=== PATIENT | male | born 1995 | race Caucasian/White ===

== ENCOUNTER 2016-07-09 21:27 | Emergency (ER) | payer BC ==
[~2016-07-09] VITALS: Ht 188 cm; Wt 100.2 kg
[2016-07-09 21:32] VITALS: TEMP 37.1; Ht 188 cm; Wt 100.2 kg
[2016-07-09] MEDS ORDERED: CEPHALEXIN MONOHYDRATE 250 MG CAP PO ONE (23:15)
[2016-07-09] MEDS ORDERED: CEPH500C PO (23:39)
--- NOTE | 2016-07-09 23:43 | EMERGENCY ROOM VISIT NOTE ---
History Report prepared by Merlene: Romel Schmitt Under the Supervision of: Dr. Dale Ren D.O. First contact with patient: 22:21 Chief Complaint: WOUND INFECTION Stated Complaint: DRAINAGE FROM INCISION SITE Nursing Triage Summary: inscision is healed there is some clear drainage coming form the top of the incision in a large amount, no redness or swelling noted History of Present Illness The patient is a 20 year old male who presents to the Emergency Room with complaints of sudden oozing from a wound on the right knee beginning a few hours prior to arrival. He states he had right ACL reconstruction surgery on May 22, and noticed excessive fluid drainage out of an incision site. The patient states he had physical therapy yesterday, and denies his knee being more swollen than usual. Source of History: patient Onset: few hours [employer] Position: knee (right) Quality: other (oozing wound) Timing: other (sudden) Review of Systems See HPI for pertinent positives & negatives. A total of 10 systems reviewed and were otherwise negative. Past Medical & Surgical Medical Problems: (1) Alcohol overdose (2) Alcoholic intoxication Surgical Problems: (1) H/O reconstruction of anterior cruciate ligament tear Family History FH polycystic kidney FH: pulmonary embolism Social History Smoking Status: Never Smoker Alcohol Use: occasionally Marital Status: single Occupation Status: [employer] student Current/Historical Medications Scheduled Cephalexin Monohydrate (Keflex), 500 MG PO QID Allergies Coded Allergies: No Known Allergies (Unverified , 07/09/16) Physical Exam Vital Signs Date Time Temp Pulse Resp B/P Pulse Ox O2 Delivery O2 Flow Rate FiO2 07/09/16 21:32 37.1 92 18 145/68 98 Room Air Physical Exam CONSTITUTIONAL/VITAL SIGNS: Reviewed / noted above. GENERAL: Non-toxic in appearance. INTEGUMENTARY: Warm, dry, and [place]. HEAD: Normocephalic. EYES: without scleral icterus or trauma. ENT/OROPHARYNX: clear and moist. LYMPHADENOPATHY/NECK: Is supple without lymphadenopathy or meningismus. RESPIRATORY: Lungs clear and equal. CARDIOVASCULAR: Regular rate and rhythm. GI/ABDOMEN: Soft and nontender. No organomegaly or pulsatile mass. No rebound or guarding. Normal bowel sounds. EXTREMITIES: There is a 3 cm linear wound to the infrapatellar region that appears to be draining serous fluid in a small amount, although was draining more earlier based on history. No additional abnormal finding with regard to the knee. Warm and well perfused. BACK: No CVA tenderness. NEUROLOGICAL: Intact without focal deficits. PSYCHIATRIC: normal affect. MUSCULOSKELETAL: Normally developed with good muscle tone. Medical Decision & Procedures Medications Administered Medications (Trade) Dose Ordered Sig/Andrew Route Start Time Stop Time Status Last Admin Dose Admin Cephalexin Monohydrate (Keflex Cap) 500 mg NOW ONCE PO 07/09/16 23:15 07/09/16 23:16 DC 07/09/16 23:14 500 MG ED Course 2300: Previous medical records were reviewed. The patient was evaluated in room B10. A complete history and physical examination was performed. 2315: Ordered Keflex Cap 500 mg PO. 2320: On reevaluation, the patient is doing well. I discussed the results and findings with the patient. He verbalized agreement of the treatment plan. The patient was discharged home. Medical Decision Etiologies such as cellulitis, abscess, MRSA infection, DVT, necrotizing fasciitis, dermatitis, drug eruption, as well as others were entertained.. This is a 20-year-old male who presents to the ED with a chief complaint of some serous drainage from a surgical wound site. The patient had anterior cruciate ligament repair performed on recently. He had a moderate amount of serous fluid drained from a wound that is not completely healed from the inferior aspect of the left knee. There is an open wound that is about 3 cm in length and a half centimeter in width. Does not appear to be acutely infected. There is some serous clear drainage from the wound when it is squeezed. There does not appear to be a knee effusion. There is no pain in the knee. The patient was started on Keflex to prevent infection while the wound heals. He was told to follow-up with his orthopedist and or doctors for further evaluation. Impression Primary Impression: Delayed surgical wound healing Additional Impression: Post surgical seroma drainage Scribe Attestation The scribe's documentation has been prepared under my direction and personally reviewed by me in its entirety. I confirm that the note above accurately reflects all work, treatment, procedures, and medical decision making performed by me. Departure Information Prescriptions Cephalexin Monohydrate (Keflex) 500 Mg Cap 500 MG PO QID, #28 CAP Prov: Dale Ren D.O. 07/09/16 Referrals [facility] (PCP) Forms HOME CARE DOCUMENTATION FORM, IMPORTANT VISIT INFORMATION, WORK / SCHOOL INSTRUCTIONS Patient Instructions My [facility] Problem Qualifiers
[2016-07-09] MEDS ORDERED: CEPHALEXIN 500MG HOME PACK 1 EA BTL PO ONE (23:45)
[2016-07-09 23:50] VITALS: BP 154/83; PULSE 83; O2SAT 97
== END 2016-07-09 23:51 | disposition home or self-care (01) ==
LOC: C.EDB 21:29
DX: L76.34 Postprocedural seroma of skin and subcutaneous tissue following other procedure (principal); Z82.71 Family history of polycystic kidney; Z82.49 Family history of ischemic heart disease and other diseases of the circulatory system

== ENCOUNTER → 2016-09-16 | Outpatient (CLI) | payer BC ==
[~2016-09-16] MED LIST: CEPH500C PO
[2016-09-16 11:52] LABS: BASO % 0.7 %; BASO ABS # 0.04 K/uL (0-0.2); COMPLETE YES; EOS % 2.3 %; IG% 0.2 %; LYMPH % 39.7 %; LYMPH ABS # 2.25 K/uL (1.2-3.4); MEAN CELL VOLUME 84.2 fL (80-100); MEAN CORPUSCULAR HEMOGLOBIN 28.1 pg (25-34); MEAN CORPUSCULAR HGB CONC 33.3 g/dl (32-36); MEAN PLATELET VOLUME 9.3 fL (7.4-10.4); MONO % 6.3 %; NEUT % 50.8 %; PLATELET COUNT 276 K/uL (130-400); RED BLOOD COUNT 4.63 M/uL (4.7-6.1); WHITE BLOOD COUNT 5.67 K/uL (4.8-10.8)
[2016-09-16 12:10] LABS: BLOOD UREA NITROGEN 10 mg/dl (7-18); BUN/CREATININE RATIO 11.4 (10-20); C-REACTIVE PROTEIN < 0.29 mg/dl (0-0.29); CALCIUM 9.4 mg/dl (8.5-10.1); CARBON DIOXIDE 28 mmol/L (21-32); CHLORIDE 104 mmol/L (98-107); CREATININE 0.84 mg/dl (0.60-1.40); GLUCOSE 80 mg/dl (70-99); POTASSIUM 4.2 mmol/L (3.5-5.1); SODIUM 140 mmol/L (136-145)
== END | disposition home or self-care (01) ==
LOC: C.LABSPEC 11:30
PROVIDERS: ATTEND Internal Medicine
DX: M00.9 Pyogenic arthritis, unspecified (principal)

== ENCOUNTER → 2016-09-23 | Outpatient (CLI) | payer BC ==
[2016-09-23 11:33] LABS: BASO % 0.8 %; BASO ABS # 0.04 K/uL (0-0.2); COMPLETE YES; EOS % 4.2 %; IG% 0.2 %; LYMPH % 35.9 %; LYMPH ABS # 1.89 K/uL (1.2-3.4); MEAN CELL VOLUME 85.7 fL (80-100); MEAN CORPUSCULAR HEMOGLOBIN 28.1 pg (25-34); MEAN CORPUSCULAR HGB CONC 32.8 g/dl (32-36); MONO % 8.7 %; NEUT % 50.2 %; PLATELET COUNT 202 K/uL (130-400); RED BLOOD COUNT 4.67 M/uL (4.7-6.1); WHITE BLOOD COUNT 5.27 K/uL (4.8-10.8)
[2016-09-23 11:47] LABS: BLOOD UREA NITROGEN 7 mg/dl (7-18); BUN/CREATININE RATIO 15.3 (10-20); CALCIUM 6.8 mg/dl (8.5-10.1); CARBON DIOXIDE 23 mmol/L (21-32); CHLORIDE 114 mmol/L (98-107); CREATININE 0.48 mg/dl (0.60-1.40); GLUCOSE 75 mg/dl (70-99); POTASSIUM 3.4 mmol/L (3.5-5.1); SODIUM 144 mmol/L (136-145)
[2016-09-23 11:50] LABS: C-REACTIVE PROTEIN < 0.29 mg/dl (0-0.29)
== END | disposition home or self-care (01) ==
LOC: C.LABSPEC 11:23
PROVIDERS: ATTEND Internal Medicine
DX: M00.9 Pyogenic arthritis, unspecified (principal)

== ENCOUNTER → 2016-10-02 | Outpatient (CLI) | payer BC ==
[2016-10-02 11:46] LABS: BLOOD UREA NITROGEN 14 mg/dl (7-18); CALCIUM 9.1 mg/dl (8.5-10.1); CARBON DIOXIDE 27 mmol/L (21-32); CHLORIDE 108 mmol/L (98-107); CREATININE 0.74 mg/dl (0.60-1.40); GLUCOSE 82 mg/dl (70-99); SODIUM 139 mmol/L (136-145)
[2016-10-02 11:49] LABS: C-REACTIVE PROTEIN < 0.29 mg/dl (0-0.29)
[2016-10-02 11:54] LABS: BASO % 0.8 %; BASO ABS # 0.04 K/uL (0-0.2); COMPLETE YES; EOS % 5.9 %; HEMATOCRIT 43.4 % (42-52); LYMPH % 34.4 %; MEAN CELL VOLUME 85.6 fL (80-100); MEAN CORPUSCULAR HEMOGLOBIN 28.6 pg (25-34); MEAN CORPUSCULAR HGB CONC 33.4 g/dl (32-36); MEAN PLATELET VOLUME 9.4 fL (7.4-10.4); MONO % 9.9 %; PLATELET COUNT 190 K/uL (130-400); RED BLOOD COUNT 5.07 M/uL (4.7-6.1); WHITE BLOOD COUNT 4.94 K/uL (4.8-10.8)
== END | disposition home or self-care (01) ==
LOC: C.LABSPEC 11:09
PROVIDERS: ATTEND Internal Medicine
DX: M00.9 Pyogenic arthritis, unspecified (principal)